=== PATIENT | female | born 1960 | race Hispanic/Latino ===

== ENCOUNTER 2019-01-10 06:38 | Day surgery (SDC) | payer BC ==
[~2019-01-10] VITALS: Ht 149.9 cm; Wt 72.6 kg
[~2019-01-10 06:38] MED LIST: SODIUM CHLORIDE 0.9% 1000ML 1,000 ML IV ONE
[2019-01-10 07:35] VITALS: BP 147/88
[2019-01-10] MEDS ORDERED: PROPOFOL 10 MG/ML 20ML VIAL IV ONE (10:04)
[2019-01-10 10:24] VITALS: BP 119/62
[2019-01-10 10:29] VITALS: BP 128/76
[2019-01-10 10:34] VITALS: BP 135/81
[2019-01-10 10:42] VITALS: BP 129/76
== END 2019-01-10 10:50 | disposition home or self-care (01) ==
LOC: ENDO 06:38 → DAH 06:38 → ENDO 10:50
PROVIDERS: ATTEND Internal Medicine
DX: Z12.11 Encounter for screening for malignant neoplasm of colon (principal); D12.4 Benign neoplasm of descending colon; E66.9 Obesity, unspecified; E11.9 Type 2 diabetes mellitus without complications; Z90.710 Acquired absence of both cervix and uterus; K57.30 Diverticulosis of large intestine without perforation or abscess without bleeding; K64.0 First degree hemorrhoids
CPT/HCPCS: 45380; 45385; A4215; A4221; A4222; A4223; A4606; A4615; A4663; J2704; J7030